=== PATIENT | female | born 1980 | race Caucasian/White ===

== ENCOUNTER → 2017-12-15 | Outpatient (CLI) | payer BC, OTHER ==
[~2017-12-15] MED LIST: ETON68IM SQ; HYDR-4309 PO
--- NOTE | 2017-12-15 15:19 | RADIOLOGY IMAGING REPORT ---
FACILITY: [facility] - [place] PATIENT NAME: Kirstie Chandler : 1980 MR: [id number] V: [id number] EXAM DATE: ORDERING PHYSICIAN: TYRA CAVAZOS TECHNOLOGIST: Location: [facility] [place] Patient: Kirstie Chandler : 1980 Visit/Account:[id number] Date of Sevice: 12/15/2017 THYROID ultrasound HISTORY: Hypothyroidism COMPARISON: None. FINDINGS: SIZE: Right lobe: 5.3 x 1.5 x 2 cm cm Left lobe: 4.4 x 1.1 x 1.4 cm cm Isthmus: 1 mm PARENCHYMA: Homogeneous. NODULES: Right lobe: * In the inferior right lobe there is a well-circumscribed hypoechoic nodule measuring [address] Left lobe: * None discrete. Isthmus: * None discrete. VASCULARITY: Within normal limits. ADDITIONAL FINDINGS: None. IMPRESSION: There is a 1 cm well-circumscribed hypoechoic nodule inferior aspect of the right lobe. A six-month follow-up thyroid ultrasound is recommended unless clinical findings were immediate attention REFERENCE: 2015 [place] [employer] Management Guidelines for Adult Patients with Thyroid Nodules and D ifferentiated Thyroid Cancer: The [place] [employer] Guidelines Task Force on Thyroid Nodul es and Differentiated Thyroid Cancer. SONOGRAPHIC PATTERNS: * Benign: Purely cystic nodules (no solid component); estimated risk of malignancy <1 percent; no bi opsy recommended. * Very Low Suspicion: Spongiform or partially cystic nodules without any of the sonographic features described in low, intermediate, or high suspicion patterns; estimated risk of malignancy <3 percent; consider FNA at > 2 cm (Observation without FNA is also a reasonable option). * Low Suspicion: Isoechoic or hyperechoic solid nodule, or partially cystic nodule with eccentric so lid areas, without microcalcification, irregular margin or ETE (extra-thyroidal extension), or taller than wide shape; estimated risk of malignancy 5-10 percent; recommend FNA at >1.5 cm. * Intermediate Suspicion: Hypoechoic solid nodule with smooth margins without microcalcifications, E TE (extra-thyroidal extension), or taller than wide shape; estimated risk of malignancy 10-20 percent ; recommend FNA at > 1 cm. * High Suspicion: Solid hypoechoic nodule or solid hypoechoic component of a partially cystic nodule with one or more of the following features: irregular margins (infiltrative, microlobulated), microc alcifications, taller than wide shape, rim calcifications with small extrusive soft tissue component, evidence of ETE (extra-thyroidal extension); estimated risk of malignancy >70-90 percent; recommend FNA at > 1 cm. NOTES: * Although a sonographically suspicious subcentimeter thyroid nodule without evidence of extrathyroi shannon extension or sonographically suspicious lymph nodes may be observed with close sonographic follow -up rather than pursuing immediate FNA, patient age and preference may modify decision-making. A > 50% interval increase in nodule volume and/or development of new suspicious sonographic features are felt to be a valid reasons for potential re-aspiration of a nodule previously shown to have benig n FNA cytology. Report Dictated By: Robyn Fleming MD at 12/15/2017 3:12 PM Report E-Signed By: Robyn Fleming MD at 12/15/2017 3:14 PM WSN:[email or web address]
== END ==
LOC: US 01:21
PROVIDERS: ATTEND Family Medicine
DX: E04.8 Other specified nontoxic goiter (principal)
CPT/HCPCS: 76536

== ENCOUNTER → 2018-06-30 | Outpatient (CLI) | payer BC ==
--- NOTE | 2018-06-30 10:29 | RADIOLOGY IMAGING REPORT ---
FACILITY: [facility] PATIENT NAME: Kirstie Chandler : 1980 MR: [id number] V: [id number] EXAM DATE: ORDERING PHYSICIAN: TYRA CAVAZOS TECHNOLOGIST: Location: [facility] Patient: Kirstie Chandler : 1980 Visit/Account:[id number] Date of Sevice: 06/30/2018 Complete abdominal ultrasound HISTORY: Abdominal pain. Nausea. Vomiting. COMPARISON: None available. Findings: Standard complete abdominal ultrasound is performed. Pancreas: Visualized portions of the pancreas are unremarkable. Liver: Negative. Gallbladder and biliary system: No gallbladder stone or sludge. No wall thickening, pericholecystic f luid, or sonographic Summers's. The common bile duct is not dilated. Spleen: Negative. Aorta and IVC: The visualized aorta and IVC are patent. Kidneys: The right kidney measures 12.4 x 4.4 x 5.8 cm and the left kidney measures 11.5 x 7.0 x 5.7 cm. Normal echogenicity. No hydronephrosis. Ascites: None. IMPRESSION: Normal abdominal ultrasound. Report Dictated By: Nils Abdalla MD at 06/30/2018 10:24 AM Report E-Signed By: Nils Abdalla MD at 06/30/2018 10:26 AM WSN:[email or web address]
== END ==
LOC: US 02:08
PROVIDERS: ATTEND Family Medicine
DX: R10.11 Right upper quadrant pain (principal); R10.12 Left upper quadrant pain; R11.2 Nausea with vomiting, unspecified
CPT/HCPCS: 76700

== ENCOUNTER → 2018-07-18 | Outpatient (CLI) | payer BC ==
[~2018-07-18] MED LIST changes: +BARIUM SULFATE 176 GM BTL PO ONE; +BARIUM SULFATE 340 GM POWD ONE
--- NOTE | 2018-07-18 15:01 | RADIOLOGY IMAGING REPORT ---
FACILITY: [facility] - [place] PATIENT NAME: Kirstie Chandler : 1980 MR: [id number] V: [id number] EXAM DATE: ORDERING PHYSICIAN: TYRA CAVAZOS TECHNOLOGIST: Location: [facility] [place] Patient: Kirstie Chandler : 1980 Visit/Account:[id number] Date of Sevice: 07/18/2018 Exam type: UPPER GI SERIES W/O AIR History: Abdomen pain and GERD Comparison: None. Findings: Double contrast upper GI series was performed with thick and thin barium and air contrast. There is no demonstration of a hiatal hernia gastric esophageal reflux esophageal narrowing or mucosal erosion . No abnormality of the stomach duodenal bulb or duodenal C-loop was seen. The fluoroscopy dose are a product was 295.66 micro-Rosa per meter squared IMPRESSION: 1. Unremarkable upper GI series Report Dictated By: Robyn Fleming MD at 07/18/2018 2:56 PM Report E-Signed By: Robyn Fleming MD at 07/18/2018 2:58 PM WSN:[email or web address]
== END ==
LOC: RAD 01:35
PROVIDERS: ATTEND Family Medicine
DX: K21.9 Gastro-esophageal reflux disease without esophagitis (principal)
CPT/HCPCS: 74240

== ENCOUNTER → 2018-07-24 | Outpatient (CLI) | payer BC ==
[~2018-07-24] MED LIST changes: -BARIUM SULFATE 176 GM BTL PO ONE; -BARIUM SULFATE 340 GM POWD ONE; +SINCALIDE 5 MCG VIAL INJ ONE; +WATER FOR INJ,STERILE 20 ML 20 ML ONE
--- NOTE | 2018-07-24 15:14 | RADIOLOGY IMAGING REPORT ---
FACILITY: [facility] PATIENT NAME: Kirstie Chandler : 1980 MR: [id number] V: [id number] EXAM DATE: ORDERING PHYSICIAN: TYRA CAVAZOS TECHNOLOGIST: Location: [facility] Patient: Kirstie Chandler : 1980 Visit/Account:[id number] Date of Sevice: 07/24/2018 Examination: Nuclear Medicine HIDA Scan with Kinevac Stimulation COMPARISON: None available HISTORY: Abdomen pain. TECHNIQUE: 6.2 mCi Tc99m Mebrofenin was injected intravenously. Multiple sequential gamma camera adali ges of the abdomen were obtained for 25 minutes. At that time, 2.5 mcg Kinevac was injected intraveno usly and an additional 30 minutes of gamma camera imaging data was acquired. A computer-generated reg ion of interest was placed around the gallbladder and time-activity curve for the gallbladder was taylor ived. The gallbladder ejection fraction was calculated. FINDINGS: Liver uptake and excretion: normal Time to appearance: Bile ducts: 5 minutes. Gallbladder: 5 minutes. Duodenum: 27 minutes. Duodenogastric reflux: none Post IV Kinevac: Ejection fraction = 88 %, (normal > 35%). Patient symptoms: Did not reproduce the patient's abdominal pain. IMPRESSION: 1. No evidence of cholecystitis or biliary obstruction. 2. Gallbladder ejection fraction of 88 %. Report Dictated By: Andre Cavazos MD at 07/24/2018 3:03 PM Report E-Signed By: Andre Cavazos MD at 07/24/2018 3:08 PM WSN:[id number]
== END ==
LOC: NUC 07:06
PROVIDERS: ATTEND Family Medicine
DX: R10.9 Unspecified abdominal pain (principal)
CPT/HCPCS: 78226; A9537; J2805